=== PATIENT | male | born 1980 | race Native Hawaiian/Other Pacific Islander ===

== ENCOUNTER → 2016-08-19 | Outpatient (CLI) | payer BC | END | disposition home or self-care (01) | LOC: GMA 11:54 | PROVIDERS: ATTEND Nurse Practitioner Family | DX: R74.8 Abnormal levels of other serum enzymes (principal); R50.9 Fever, unspecified ==

== ENCOUNTER → 2016-08-23 | Outpatient (CLI) | payer BC ==
--- NOTE | 2016-08-23 11:16 | US ---
EXAM DESCRIPTION: Abdomen,Complete CLINICAL HISTORY: ABN LABS COMPARISON: None available. FINDINGS: Aorta: Nonaneurysmal. IVC: Visualized portions normal. Ascites: None. Pancreas: Partially obscured by overlying bowel gas but visualized portions normal. Liver: No mass, hepatomegaly or biliary duct dilation. Blood flow in the portal vein is not evaluated on this exam, but the portal vein does not appear dilated. Gallbladder/Common Duct: No stones, wall thickening, pericholecystic fluid or common duct dilation. Is a 5 mm polyp or sludge ball lying dependently in the gallbladder. Right Kidney: No stones, hydronephrosis, atrophy or mass. Spleen: The spleen is enlarged, measuring just under 14 cm in length. There is no focal splenic lesion or perisplenic fluid. Left Kidney: No stones, hydronephrosis, atrophy or mass. IMPRESSION: Splenomegaly without focal splenic lesion or hepatomegaly. Portal venous flow not evaluated. 5 mm sludge ball or polyp in the gallbladder without cholelithiasis, gallbladder wall thickening or biliary duct dilation. Electronically signed by: Emil Jiménez MD 08/23/2016 11:14 AM CDT
== END | disposition home or self-care (01) ==
LOC: US 08:29
PROVIDERS: ATTEND Nurse Practitioner Family
DX: R16.1 Splenomegaly, not elsewhere classified (principal); K82.4 Cholesterolosis of gallbladder

== ENCOUNTER → 2019-02-22 | Outpatient (CLI) | payer OTHER | LOC: GMATM 10:21 | PROVIDERS: ATTEND Nurse Practitioner Family | DX: R53.83 Other fatigue (principal) ==